=== PATIENT | male | born 1985 | race Hispanic/Latino ===

== ENCOUNTER 2017-06-12 14:16 | Emergency (ER) | payer BC, SELFPAY ==
[2017-06-12] MEDS ORDERED: Fluorescein Opthalmic Strip ONE (14:28)
== END 2017-06-12 14:58 | disposition home or self-care (01) ==
LOC: SCSER 14:16
DX: H15.101 Unspecified episcleritis, right eye (principal); F17.210 Nicotine dependence, cigarettes, uncomplicated
CPT/HCPCS: 99283